=== PATIENT | male | born 1975 | race Caucasian/White ===

== ENCOUNTER 2017-04-06 18:42 | Emergency (ER) | payer SELFPAY ==
[~2017-04-06] VITALS: Ht 185.4 cm; Wt 95.0 kg
[~2017-04-06 18:42] MED LIST: OXYC-360 PO; Z.0.NO CURRENT MEDS
[2017-04-06 18:44] VITALS: BP 130/84; PULSE 74; RESP 16; TEMP 97.8; O2SAT 98
[2017-04-06] MEDS ORDERED: IBUPROFEN 800 MG TAB PO ONE (19:30)
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
[2017-04-06] MEDS ORDERED: PERC5TAB12 PO (20:21)
[2017-04-06] MEDS ORDERED: IBUP800T23 PO (20:33)
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
== END 2017-04-06 21:20 | disposition home or self-care (01) ==
LOC: NEPK 18:42
DX: S82.51XA Displaced fracture of medial malleolus of right tibia, initial encounter for closed fracture (principal); X50.0XXA Overexertion from strenuous movement or load, initial encounter; Y93.I9 Activity, other involving external motion
CPT/HCPCS: 29515; 73610; 99283; E0113

== ENCOUNTER → 2017-04-14 | Day surgery (SDC) | payer SELFPAY ==
[~2017-04-14] MED LIST changes: +BUPIVACAINE HCL PF 0.75% 30 ML VIAL ONE; +IBUP800T23 PO; +LACTATED RINGER'S 1000 ML INJ 1,000 ML ONE; +LIDOCAINE 1.5%/EPINEPHrine 1:200,000 PF SOLN 30 ML AMP ONE; +MIDAZOLAM HCL 5 MG/ML VIAL (1 ML) ONE; +PERC5TAB12 PO; +PROPOFOL 200 MG/20 ML AMP IV ONE; +ceFAZolin 2 GM PREMIX 50 ML ONE
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
== END | disposition home or self-care (01) ==
LOC: ESDC 12:45
PROVIDERS: ATTEND Orthopaedic Surgery Sports Medicine
DX: S82.51XA Displaced fracture of medial malleolus of right tibia, initial encounter for closed fracture (principal); S82.64XA Nondisplaced fracture of lateral malleolus of right fibula, initial encounter for closed fracture
CPT/HCPCS: 01480; 27766; 73600; 76000; J0690; J2250; J3010; J7120; C1713

== ENCOUNTER → 2017-05-04 | Outpatient (CLI) | payer SELFPAY ==
[~2017-05-04] MED LIST changes: -BUPIVACAINE HCL PF 0.75% 30 ML VIAL ONE; -LACTATED RINGER'S 1000 ML INJ 1,000 ML ONE; -LIDOCAINE 1.5%/EPINEPHrine 1:200,000 PF SOLN 30 ML AMP ONE; -MIDAZOLAM HCL 5 MG/ML VIAL (1 ML) ONE; -PROPOFOL 200 MG/20 ML AMP IV ONE; -ceFAZolin 2 GM PREMIX 50 ML ONE
== END ==
LOC: HORT 09:15
PROVIDERS: ATTEND Orthopaedic Surgery Sports Medicine
DX: Z47.89 Encounter for other orthopedic aftercare (principal)
CPT/HCPCS: L2114